=== PATIENT | female | born 1965 | race Caucasian/White ===

== ENCOUNTER → 2017-01-18 | Outpatient (CLI) | payer BC | LOC: MC.RAD 07:40 | DX: Z12.31 Encounter for screening mammogram for malignant neoplasm of breast (principal) ==

== ENCOUNTER → 2018-03-27 | Outpatient (CLI) | payer BC | LOC: MC.RAD 11:00 | DX: Z12.31 Encounter for screening mammogram for malignant neoplasm of breast (principal) ==

== ENCOUNTER → 2019-04-03 | Outpatient (CLI) | payer BC | LOC: MC.RAD 07:14 | DX: Z12.31 Encounter for screening mammogram for malignant neoplasm of breast (principal) ==

== ENCOUNTER → 2020-01-09 | Outpatient (CLI) | payer BC | LOC: COL.RAD 10:12 | DX: K76.0 Fatty (change of) liver, not elsewhere classified (principal) | CPT/HCPCS: Q9967 ==

== ENCOUNTER → 2020-01-29 | Outpatient (CLI) | payer BC | LOC: COL.LAB 08:00 → SDCO 02-02 12:30 → EDSTATUS 02-02 12:30 | DX: K40.90 Unilateral inguinal hernia, without obstruction or gangrene, not specified as recurrent (principal); Z98.890 Other specified postprocedural states ==

== ENCOUNTER 2020-03-26 11:42 | Day surgery (SDC) | payer BC ==
[~2020-03-26] VITALS: Ht 163.8 cm; Wt 90.7 kg
[2020-03-26 12:19] VITALS: BP 151/83; PULSE 72; TEMP 98.1
[2020-03-26] MEDS ORDERED: PRILOTC (12:23)
[2020-03-26] MEDS ORDERED: ESTRACE0.5 MG PO (12:24)
[2020-03-26] MEDS ORDERED: NORVASC2.5 MG PO (12:24)
[2020-03-26] MEDS ORDERED: ASPIRIN E.C. 8181 MG PO (12:24)
[2020-03-26] MEDS ORDERED: CLARITIN-D 10 M1 T24 PO (12:25)
[2020-03-26] MEDS ORDERED: TYLENOL 500MG500 MG PO (12:26)
[2020-03-26] MEDS ORDERED: ULTRAM 50MG TAB50 MG PO (14:00)
[2020-03-26 14:24] VITALS: TEMP 98
--- NOTE | 2020-03-26 14:38 | NUR ---
TO RM 7 PER CART FROM PACU. ALERT ORIENTED X3, TALKING WITH STAFF AND MOTHER. EATING ICE CHIPS AND TOLERATING WELL. 3 BANDAIDES CLEAN DRY INTACT. C/O PAIN 3/10 AND DENIES PAIN FOR PAIN MEDICATIONS AT THIS TIME.
--- NOTE | 2020-03-26 14:45 | NUR ---
DISCHARGED PER WC BY NURSING STAFF TO PRIVATE CAR IN CARE OF MOTHER MINH.
[2020-03-26 14:55] VITALS: BP 136/70; PULSE 72
--- NOTE | 2020-03-26 14:55 | NUR ---
RECEIVED WATER AND VANILLA PUDDING. TALKING TO MOTHER AT BEDSIDE.
[2020-03-26 15:10] VITALS: BP 131/63; PULSE 72
--- NOTE | 2020-03-26 15:10 | NUR ---
NO CHANGES RESTING QUIETLY
--- NOTE | 2020-03-26 15:20 | NUR ---
AMBULATED TO BATHROOM WITH 1 ASSIST AND TOLERATED WELL. VOIDED AND AMBULATED BACK TO
--- NOTE | 2020-03-26 15:30 | NUR ---
MOTHER AND PATIENT RECEIVED DISCHARGE INSTRUCTIONS. DISCONTINUED IV AND INT- CATHETER INTACT.
== END 2020-03-26 15:54 | disposition home or self-care (01) ==
LOC: SDCO 11:42
DX: K40.90 Unilateral inguinal hernia, without obstruction or gangrene, not specified as recurrent (principal); I10 Essential (primary) hypertension; K21.9 Gastro-esophageal reflux disease without esophagitis; N39.3 Stress incontinence (female) (male); R51 Headache; E66.9 Obesity, unspecified; F41.9 Anxiety disorder, unspecified; F32.9 Major depressive disorder, single episode, unspecified; M19.042 Primary osteoarthritis, left hand; Z90.710 Acquired absence of both cervix and uterus; Z79.82 Long term (current) use of aspirin; Z79.899 Other long term (current) drug therapy; Z88.5 Allergy status to narcotic agent; Z88.8 Allergy status to other drugs, medicaments and biological substances; Z20.828 Contact with and (suspected) exposure to other viral communicable diseases
CPT/HCPCS: C1781; J0330; J1100; J1885; J2405; J2704; J2710; J2765; J3010; J7120

== ENCOUNTER → 2020-04-08 | Outpatient (CLI) | payer BC ==
[~2020-04-08] MED LIST: ASPIRIN E.C. 8181 MG PO; CLARITIN-D 10 M1 T24 PO; ESTRACE0.5 MG PO; NORVASC2.5 MG PO; PRILOTC; TYLENOL 500MG500 MG PO; ULTRAM 50MG TAB50 MG PO
== END ==
LOC: MC.RAD 15:43
DX: Z12.31 Encounter for screening mammogram for malignant neoplasm of breast (principal); N63.10 Unspecified lump in the right breast, unspecified quadrant

== ENCOUNTER → 2020-04-15 | Outpatient (CLI) | payer BC | LOC: MC.RAD 07:45 | DX: Z12.31 Encounter for screening mammogram for malignant neoplasm of breast (principal) ==

== ENCOUNTER → 2021-04-28 | Outpatient (CLI) | payer BC | LOC: MC.RAD 13:30 | DX: Z12.31 Encounter for screening mammogram for malignant neoplasm of breast (principal); N63.10 Unspecified lump in the right breast, unspecified quadrant ==

== ENCOUNTER → 2022-05-17 | Outpatient (CLI) | payer BC | LOC: MC.RAD 07:45 | DX: Z12.31 Encounter for screening mammogram for malignant neoplasm of breast (principal) ==